=== PATIENT | female | born 1955 | race Two or more races ===

== ENCOUNTER 2023-03-06 07:55 | Day surgery (SDC) | payer OTHER | END 2023-03-06 14:25 | disposition home or self-care (01) | LOC: AMB-ENDOS 07:55 → CIR.AMB 09:15 → AMB-ENDOS 14:25 | PROVIDERS: ATTEND Colon & Rectal Surgery | DX: D12.5 Benign neoplasm of sigmoid colon (principal); K57.30 Diverticulosis of large intestine without perforation or abscess without bleeding; K64.8 Other hemorrhoids ==